=== PATIENT | male | born 1990 | race Caucasian/White ===

== ENCOUNTER 2016-08-01 21:37 | Emergency (ER) | payer BC | END 2016-08-01 22:43 | disposition home or self-care (01) | LOC: ER1 21:37 | DX: S93.601A Unspecified sprain of right foot, initial encounter (principal); F41.9 Anxiety disorder, unspecified; X50.1XXA Overexertion from prolonged static or awkward postures, initial encounter; Y93.75 Activity, martial arts | CPT/HCPCS: 73610; 73630; 99283 ==